=== PATIENT | male | born 1995 | race American Indian/Alaskan Native ===

== ENCOUNTER 2017-11-23 20:28 | Emergency (ER) | payer SELFPAY ==
[2017-11-23 21:07] VITALS: BP 122/79
[2017-11-23] MEDS ORDERED: XYLOCAINE 2% INFILTRATI ONE (23:47)
[2017-11-23] MEDS ORDERED: NORCO 7.5/325 PO ONE (23:48)
--- NOTE | 2017-11-23 23:52 | Emergency Department Report ---
Abscess Boil HPI - HPI Chief Complaint: Skin/Abscess/Foreign Body Stated Complaint: BUMP UNDER THE ARM Time Seen by Provider: 11/23/17 23:46 Duration: 3 Days Location: Upper Extremity (right armpit) Severity: Severe History: Yes Pain, No Fever, No Purulent Drainage, No Numbness, No Foreign Body , No Previous History, No Insect Bite HPI: This is a 22 y.o. A.A. male that presents with abscess under right armpit for 3 days. Reports using secret deodorant for a few days for the first time and woke up with a large painful bump a couple days after using it. He is applying heat for 15-20 minutes with no improvement of symptoms. States it is painful to touch and painful to move arm at all. Denies having abscess before, drainage, fever, and numbness/tingling. Home Medications: Previous Rx's Medication Instructions Recorded Last Taken Type Ibuprofen 600 mg PO Q6H PRN #20 tablet 11/24/17 Unknown Rx Sulfamethoxazole/Trimethoprim 1 each PO BID 10 Days #20 tablet 11/24/17 Unknown Rx [Bactrim DS TAB] Allergies/Adverse Reactions: Allergies Allergy/AdvReac Type Severity Reaction Status Date / Time No Known Allergies Allergy Unverified 11/23/17 21:05 ED Review of Systems ROS: Stated complaint: BUMP UNDER THE ARM Other details as noted in HPI Constitutional: denies: chills, fever Respiratory: denies: cough, shortness of breath, wheezing Cardiovascular: denies: chest pain, palpitations Gastrointestinal: denies: abdominal pain, nausea, diarrhea Musculoskeletal: denies: back pain, joint swelling, arthralgia Skin: other (abscess under right arm). denies: rash, lesions Neurological: denies: headache, weakness, paresthesias ED Past Medical Hx - Past Medical History Previous Medical History?: No - Surgical History Past Surgical History?: No - Medications Home Medications: Home Medications Medication Instructions Recorded Confirmed Last Taken Type Ibuprofen 600 mg PO Q6H PRN #20 tablet 11/24/17 Unknown Rx Sulfamethoxazole/Trimethoprim 1 each PO BID 10 Days #20 tablet 11/24/17 Unknown Rx [Bactrim DS TAB] ED Abscess Boil Physical Exam - Exam General: Vital signs noted. No distress. Alert and acting appropriately. Front/Back of Body, Lg (Color): 1 - 2 cm nodule, right axilla, tender, erythematous, fluctuance Size: 2 cm Exam: Yes Tenderness, Yes Fluctuance, Yes Surrounding Cellulites/Erythema, Yes Normal Neurologic Exam, Yes Normal Circulation, No Lymphangitis, No Crepitation , No Heart Murmur I & D Note - I & D Note I & D Note: The area was prepared and draped in the usual, sterile manner. The site was anesthetized with 2% lidocaine without epinephrine. A linear incision along the local skin lines was made and the purulent material expressed. The abcess was explored thoroughly and sequestered pockets were opened. Bleeding was minimal. Packing: idodoform. Followup: The patient tolerated the procedure well without complications. Standard post-procedure care was explained and return precautions are given. ED Course Vital Signs 11/23/17 21:05 Temperature 98.6 F Pulse Rate 62 Respiratory 16 Rate Blood Pressure 122/79 O2 Sat by Pulse 99 Oximetry Critical care attestation.: If time is entered above; I have spent that time in minutes in the direct care of this critically ill patient, excluding procedure time. ED Medical Decision Making - Medical Decision Making This is a 22 y.o. male that presents with a painful abscess to right axilla for 3 days. No history of prior abscess. He started using a new deodorant last week. Patient is stable and examined by me. Physical assessment of 2 cm fluctuance nodule to right axilla. No acute signs of distress noted. Given norco 7.5 mg po once in ER. I&D refer to note. Discussed plan to start bactrim DS and ibuprofen with patient. Educated patient and spouse on follow up plan to have packing removed and wound reassessed in 2-3 days. Patient agrees to ED plan of care. Discharged home and follow up with PCP in 2-3 days. ED Disposition Clinical Impression: Abscess, Abscess of axilla, right Disposition: DC-01 TO HOME OR SELFCARE Is pt being admited?: No Does the pt Need Aspirin: No Condition: Stable Instructions: Abscess Incision and Drainage (ED), Abscess (ED) Additional Instructions: Keep packing in place for 2-3 days. Return to ER or f/u with PCP to have packing removed and wound reassessed. Complete full round of bactrim DS antibiotic as prescribed. Follow up with PCP or ER in 2-3 days. Return to ER if foul smelling discharge, swelling, or severe pain to wound. Prescriptions: Ibuprofen 600 mg PO Q6H PRN #20 tablet PRN Reason: Pain Sulfamethoxazole/Trimethoprim [Bactrim DS TAB] 1 each PO BID 10 Days #20 tablet Referrals: [facility] [Outside] - 3-5 Days [facility] [Outside] - 3-5 Days [facility] [Outside] - 3-5 Days Time of Disposition: 01:16 Print Language: SLOVAK
== END 2017-11-24 01:38 | disposition home or self-care (01) ==
LOC: ED 20:28
DX: L02.411 Cutaneous abscess of right axilla (principal)
CPT/HCPCS: 99282

== ENCOUNTER 2017-11-25 20:07 | Emergency (ER) | payer SELFPAY ==
[2017-11-25 21:08] VITALS: BP 120/84
--- NOTE | 2017-11-25 22:28 | Emergency Department Report ---
ED Recheck HPI - General Chief Complaint: Laceration/Recheck/Suture Stated Complaint: PACKING RMVL FROM I@D Time Seen by Provider: 11/25/17 21:53 Source: patient Mode of arrival: Ambulatory Limitations: No Limitations - History of Present Illness Initial Comments: Patient here to get wound to his right arm. Reevaluated. He said he had one drained 2 days ago and he started on Bactrim DS yesterday. He said he is having pain 9 out of 10 only with movement / palpation. Patient states that he has packing in and they told him to come back to have the packing removed. Denies any fever or chills. Complaint: wound re-check Onset/Timin -: days(s) Initial Visit For: abscess Returns Today for: wound recheck Symptoms Since Prior Visit: no new symptoms Context: planned re-check Associated Symptoms: none Treatments Prior to Arrival: Given Antibiotics on, Given Pain Meds on - Related Data Previous Rx's Medication Instructions Recorded Last Taken Type Ibuprofen 600 mg PO Q6H PRN #20 tablet 11/24/17 Unknown Rx Sulfamethoxazole/Trimethoprim 1 each PO BID 10 Days #20 tablet 11/24/17 Unknown Rx [Bactrim DS TAB] Allergies Allergy/AdvReac Type Severity Reaction Status Date / Time No Known Allergies Allergy Unverified 11/23/17 21:05 ED Review of Systems ROS: Stated complaint: PACKING RMVL FROM I@D Other details as noted in HPI Comment: All other systems reviewed and negative Constitutional: no symptoms reported ENT: denies: ear pain, throat pain Cardiovascular: denies: chest pain, palpitations Gastrointestinal: denies: nausea, vomiting Musculoskeletal: denies: back pain, joint swelling, arthralgia, myalgia Skin: other (abscess to the right arm.) Neurological: denies: headache ED Past Medical Hx - Past Medical History Previous Medical History?: Yes Additional medical history: Abscess right arm. - Surgical History Past Surgical History?: No - Family History Family history: no significant - Social History Smoking Status: Never Smoker Substance Use Type: None - Medications Home Medications: Home Medications Medication Instructions Recorded Confirmed Last Taken Type Ibuprofen 600 mg PO Q6H PRN #20 tablet 11/24/17 Unknown Rx Sulfamethoxazole/Trimethoprim 1 each PO BID 10 Days #20 tablet 11/24/17 Unknown Rx [Bactrim DS TAB] ED Physical Exam - General Limitations: No Limitations General appearance: alert, in no apparent distress - Head Head exam: Present: atraumatic, normocephalic, normal inspection - Eye Eye exam: Present: normal appearance, PERRL, EOMI - ENT ENT exam: Present: normal exam, normal orophraynx, mucous membranes moist - Neck Neck exam: Present: normal inspection, full ROM, other (no C-spine tenderness). Absent: tenderness, meningismus, lymphadenopathy - Respiratory Respiratory exam: Present: normal lung sounds bilaterally. Absent: respiratory distress, chest wall tenderness - Cardiovascular Cardiovascular Exam: Present: regular rate, normal rhythm, normal heart sounds. Absent: systolic murmur, diastolic murmur ED Course Vital Signs 11/25/17 21:00 Temperature 99.0 F Pulse Rate 63 Respiratory 18 Rate Blood Pressure 120/84 O2 Sat by Pulse 98 Oximetry Vital Signs 11/25/17 11/25/17 21:00 22:29 Temperature 99.0 F Pulse Rate 63 68 Respiratory 18 18 Rate Blood Pressure 120/84 O2 Sat by Pulse 98 98 Oximetry - Reevaluation(s) Reevaluation #1: 11/25/17 22:30 Patient given Magic mouthwash, Motrin 800 mg by mouth and Deltasone 60 mg by mouth for sore throat. She said it felt better. Oxygenation is 98% on room air. Patient's refuse then nebulizer treatment. ED Recheck MDM - Medical Decision Making ED course: Patient here reports that he is here to get his wound rechecked as was instructed. He had incision and drainage to right axilla abscess 2 days ago. Patient started taking Bactrim DS yesterday. He reports pain only with movement and palpation. Patient is not applying warm compresses to the site. He denies any new symptoms. Area examined and still with some indurated area surrounded in incision. No erythema noted. Area cleansed with iodine and normal saline and sterile dry dressing placed the site. I instructed patient to return to emergency room on 11/28/2017 for reevaluation of 1. I also discussed with him that he needs to continue Bactrim and ibuprofen. He voiced understanding. Discharged home with his friend in stable condition Critical care attestation.: If time is entered above; I have spent that time in minutes in the direct care of this critically ill patient, excluding procedure time. ED Disposition Clinical Impression: Encounter for wound re-check Disposition: DC-01 TO HOME OR SELFCARE Is pt being admited?: No Does the pt Need Aspirin: No Condition: Stable Instructions: Abscess (ED) Additional Instructions: Continue to Take antibiotic as prescribed Follow-up with your primary care physician in 4 days Keep affected area clean and dry. Please return to the emergency room on 11/28/2017 for reevaluation of her wound and possible removal of packing. If you develop, increased redness, swelling, fever, increased pain and restriction of movement to right upper extremity please return to the emergency room DANILO Followed discharge instruction on acute wound care . Referrals: PRIMARY CARE, [Primary Care Provider] - 11/29/17 [facility] [Outside] - 11/29/17 return to, emergency room [Other] - 11/28/17 (For evaluation and possible removal of pack in) Forms: Work/School Release Form(ED)
== END 2017-11-25 22:42 | disposition home or self-care (01) ==
LOC: ED 20:07
DX: Z48.01 Encounter for change or removal of surgical wound dressing (principal)
CPT/HCPCS: 99282